=== PATIENT | male | born 1965 | race Caucasian/White ===

== ENCOUNTER 2021-12-22 23:22 | Emergency (ER) | payer SELFPAY ==
[~2021-12-22] VITALS: Ht 167.6 cm; Wt 69.0 kg
[2021-12-23] MEDS ORDERED: TETANUS, DIPHTHERIA, PERTUSSIS VAC/PF 0.5ML (>10YR OLD) IM ONE (00:30)
[2021-12-23] MEDS ORDERED: LIDOCAINE HCL/EPINEPHRINE 1%-EPI 1:100,000 20 ML VIAL INFIL ONE (00:30)
[2021-12-23] MEDS ORDERED: BACITRACIN ZINC OINT UDPKT TOP ONE (00:30)
[2021-12-23] MEDS ORDERED: ACETAMINOPHEN 325MG TABLET PO ONE (00:30)
[2021-12-23] MEDS ORDERED: LIDOCAINE HCL/EPINEPHRINE 1%-EPI 1:100,000 20 ML VIAL INFIL SCH (02:15)
[2021-12-23 02:30] VITALS: BP 130/80
[2021-12-23] MEDS ORDERED: AMOX-424 MT (02:31)
== END 2021-12-23 02:40 | disposition home or self-care (01) ==
LOC: ER 23:22
DX: S01.511A Laceration without foreign body of lip, initial encounter (principal); S01.512A Laceration without foreign body of oral cavity, initial encounter; S09.8XXA Other specified injuries of head, initial encounter; Y04.0XXA Assault by unarmed brawl or fight, initial encounter; Y93.89 Activity, other specified; Y92.89 Other specified places as the place of occurrence of the external cause
CPT/HCPCS: 12013; 90471; 90715; 99284; J3490

== ENCOUNTER 2021-12-24 15:38 | Emergency (ER) | payer SELFPAY ==
[~2021-12-24] VITALS: Ht 177.8 cm; Wt 73.0 kg
[~2021-12-24 15:38] MED LIST: AMOX-424 MT
[2021-12-24 15:44] VITALS: BP 116/66
== END 2021-12-24 17:09 | disposition home or self-care (01) ==
LOC: ER 15:38
DX: S01.511A Laceration without foreign body of lip, initial encounter (principal); Y08.89XA Assault by other specified means, initial encounter; Y93.89 Activity, other specified; Y92.89 Other specified places as the place of occurrence of the external cause; Y99.8 Other external cause status
CPT/HCPCS: 99281